=== PATIENT | female | born 1945 ===

== ENCOUNTER 2022-05-16 11:13 | Outpatient (CLI) | payer OTHER | END 2022-05-16 11:16 | disposition home or self-care (01) | LOC: RAD 11:13 | PROVIDERS: ATTEND Orthopaedic Surgery | DX: M54.50 Low back pain, unspecified (principal) ==

== ENCOUNTER 2022-05-22 11:03 | Outpatient (CLI) | payer OTHER | END 2022-05-22 11:13 | disposition home or self-care (01) | LOC: MRI 11:03 | PROVIDERS: ATTEND Orthopaedic Surgery | DX: M25.552 Pain in left hip (principal); M16.12 Unilateral primary osteoarthritis, left hip | CPT/HCPCS: 73721 ==